=== PATIENT | female | born 1985 | race Caucasian/White ===

== ENCOUNTER 2025-01-10 13:45 | Emergency (ER) | payer BC, SELFPAY ==
--- NOTE | 2025-01-10 13:50 | ED_ITS ---
HPI - Female Genitourinary General Chief complaint: Urogenital-Female Stated complaint: Uti Symptoms Time Seen by Provider: 01/10/25 14:05 Source: patient Mode of arrival: ambulatory Limitations: no limitations History of Present Illness HPI Narrative: Emiyl is a 40-year-old female patient presenting to the clinic today with complaints any tract infection over the last 1-2 days. She reports she is having burning, frequency, and urgency with low urine output. She denies any odor or any abnormal vaginal discharge. Denies any concern for STIs. No fever, chills, body aches, abdominal pain, or back pain. States she does get vaginal yeast infections when taking antibiotics at times. Related Data Allergies Allergy/AdvReac Type Severity Reaction Status Date / Time No Known Allergies Allergy Mild Verified 01/10/25 13:55 Review of Systems Review of Systems: Pertinent positives per HPI. Patient denies any fever, chills, rash, headache, visual changes, dizziness, cough, shortness of breath, chest pain, palpitations, nausea, vomiting, diarrhea, constipation, abdominal pain, or any urinary issues. PMFSH Comments At the time of my signature, I reviewed and agree with the nursing past medical, surgical, social, and family history. There is no relevant family history pertinent to the patient complaint. Exam Narrative: General: Well-developed, well nourished, in no apparent distress. Head: Normocephalic, atraumatic. Cardio: Regular rate and rhythm, s1 and s2 normal, no murmur appreciated. Resp: Clear to auscultation bilaterally, no rhonchi, rales, wheezing or rubs. Abdomen: Soft, pliable, bowel sounds present in all quadrants, non-tender to palpation, no organomegly, no CVAT tenderness. Course Course Emergency Course: Portions of this record may have been created with voice recognition software. Level of Care: Express Care Visit Vital Signs Vital signs: Vital Signs Temperature 36.6 C 01/10/25 13:58 Pulse Rate 100 01/10/25 13:58 Respiratory Rate 16 01/10/25 13:58 Blood Pressure 105/73 01/10/25 13:58 Pulse Oximetry 100 01/10/25 13:58 Temperature 36.6 C 01/10/25 13:58 Pulse Rate 100 01/10/25 13:58 Respiratory Rate 16 01/10/25 13:58 Blood Pressure 105/73 01/10/25 13:58 Pulse Oximetry 100 01/10/25 13:58 Vital signs reviewed MDM - Female Genitourinary MDM Narrative Medical decision making narrative: At the time of visit patient is resting comfortably on the exam table. Patient appears to be nontoxic. Labs: Urinalysis positive for leukocytes, blood, and protein. We will send urine for culture. Plan: I suspect patient has UTI. Prescription for Bactrim, Pyridium, and fluconazole was sent to the pharmacy. Supportive measures were discussed with the patient and they voiced understanding discharge instructions and agrees to treatment plan. Return precautions reviewed Differential Diagnosis Differential diagnosis: Likely urinary tract infection and cystitis Lab Data Labs: Lab Results 01/10/25 Range/Units 14:09 POC Urine Color Yellow POC Urine Clarity Cloudy POC Urine pH 6.5 POC Ur Specif [place] 1.030 POC Urine Protein 2+ (Negative) POC Ur Glucose (UA) Negative (Negative) POC Urine Ketones Negative (Negative) POC Urine Blood 2+ (Negative) POC Urine Nitrite Negative (Negative) POC Urine Bilirubin Negative (Negative) POC Urine Urobilinogen 0.2 POC U Leukocyte Esteras 1+ (Negative) Discharge Plan Discharge Clinical Impression: Urinary tract infection Qualifiers: Urinary tract infection type: acute cystitis Hematuria presence: with hematuria Qualified Code(s): N30.01 - Acute cystitis with hematuria Patient Disposition: Home, Self-Care Condition: Stable Instructions: Antibiotic Form, Urinary Tract Infection in Women (ED) Additional Instructions: Urinalysis positive for bacteria, protein, and blood Take Bactrim as prescribed Take Pyridium as prescribed Take fluconazole as prescribed Increase fluids and stay well hydrated Wipe front to back. May use wet wipes. Avoid tub baths If sexually active- pee before and after intercourse. Wear cotton panties Avoid tight clothing up against the genitals Follow up with your PCP in 1 week if symptoms persist. Patient Language: Latvian Prescriptions: New fluconazole 150 mg tablet 150 mg PO ONCE Qty: 2 0RF Rx Instructions: as a single dose. May repeat in 72 hours if needed. phenazopyridine [Pyridium] 200 mg tablet 200 mg PO TID PRN (Reason: pain) Qty: 6 0RF sulfamethoxazole-trimethoprim [Bactrim DS] 800-160 mg tablet 1 tablet PO Q12H 5 Days Qty: 10 0RF Follow-up/Referrals: PHYSICIAN,[employer] LAMINATOR [Primary Care Provider] - Time of Disposition: 14:25 Quality NIHSS Nursing Documentation ED NIHSS nursing documentation: reviewed/agree
[2025-01-10 13:58] VITALS: BP 105/73; PULSE 100; RESP 16; TEMP 36.6; O2SAT 100
[2025-01-10 14:11] LABS: EDUAAPPEAR Cloudy; EDUABILI Negative (Negative); EDUABLOOD 2+ (Negative); EDUACOLOR1 Yellow; EDUAGLUCOSE Negative (Negative); EDUAKETONE Negative (Negative); EDUALEUKO 1+ (Negative); EDUANITRATE Negative (Negative); EDUAPH 6.5; EDUAPROTEIN 2+ (Negative); EDUAUROBILI 0.2
== END 2025-01-10 14:32 | disposition home or self-care (01) ==
PROVIDERS: Emergency Provider Nurse Practitioner Family
DX: N30.01 Acute cystitis with hematuria (principal)
CPT/HCPCS: 81003; 87086; 99203; G0463

== ENCOUNTER 2025-02-19 13:41 | Emergency (ER) | payer BC, SELFPAY ==
[2025-02-19 13:53] VITALS: BP 110/77; PULSE 89; RESP 16; TEMP 36.6; O2SAT 100
--- NOTE | 2025-02-19 13:56 | ED.FEMALEGU ---
HPI - Female Genitourinary General Chief complaint: Urogenital-Female Stated complaint: UTI SYMPTOMS Time Seen by Provider: 02/19/25 13:57 Source: patient, RN notes reviewed and old records reviewed Mode of arrival: ambulatory Limitations: no limitations History of Present Illness HPI Narrative: 40 year old female presents to express car with complaints of developing urgency and burning with urination since last night. Patient reports that she feel like she has to urinate and then she can't go. Patient reports that she has had several UTI's lately. Patient reports that she just took Amoxicillin in January for UTI. Patient states that she has seen an Urologist in the past. Ptient reports that she has had a uterine ablation and does not have menses.Patient reports no fevers, chills or sweats, denies any back or flank pain. MD elicited complaint: UTI Pertinent past history: recurrent UTIs Onset (ago): day(s) (last night symptoms started) Location of symptoms: urethra Severity: mild Quality of pain: burning Vaginal discharge: none Vaginal bleeding: none Urinary symptoms: Dysuria, Urgency and Frequency Treatment prior to arrival: none Related Data Home Medications ?Medication ?Instructions ?Recorded ?Confirmed ?Last Taken ?Type alprazolam 0.25 mg tablet 0.25 mg PO HS PRN anxiety 02/19/25 02/19/25 Unknown History bupropion HCl 300 mg 24 hr tablet, 300 mg PO DAILY 02/19/25 02/19/25 Unknown History extended release plecanatide 3 mg tablet (Trulance) 3 mg PO DAILY 02/19/25 02/19/25 Unknown History risankizumab-rzaa 150 mg/mL 150 mg subcut .3 months 02/19/25 02/19/25 Unknown History subcutaneous pen injector (Skyrizi) tirzepatide (weight loss) 5 mg/0.5 5 mg subcut WEEKLY 02/19/25 02/19/25 Unknown History mL subcutaneous pen injector (Zepbound) Allergies Allergy/AdvReac Type Severity Reaction Status Date / Time No Known Allergies Allergy Mild Verified 02/19/25 13:47 Review of Systems Review of Systems: CONSTITUTIONAL: Denies fever, chills, or sweats. CARDIOVASCULAR: Denies chest pain, palpitations, or edema. RESPIRATORY: Denies cough or dyspnea. GASTROINTESTINAL: Denies abdominal pain, nausea, vomiting, or diarrhea. GENITOURINARY: Reports dysuria, frequency, urgency. Denies flank pain or hematuria. SKIN: Denies rash or itching. MUSCULOSKELETAL: Denies back pain or myalgia. Denies CVA tenderness NEUROLOGIC: Denies headache All systems reviewed & are unremarkable except as noted in HPI and below PMFSH Past Medical History Medical History (Updated 02/22/25 @ 08:26 by Capri Fortune NP) Psoriasis IBS (irritable bowel syndrome) Anxiety and depression Urinary tract infection Surgical History Surgical History History of endometrial ablation Social History Social History Smoking status: Never smoker Alcohol intake: current Alcohol use details: social Substance use type: does not use Living arrangements: with family Gender identity (if verbalized by the patient): Female Comments At time of signature, agree with nursing past medical, surgical, social and family history. There is no relevant family history pertinent to the presenting complaint Exam Narrative: GENERAL: Well-appearing, well-nourished, and in no acute distress. HEAD: Normocephalic, atraumatic. NECK: Supple. no lymphadenopathy CHEST: Clear to auscultation. No respiratory distress. SAO2 100% on room air HEART: Regular rate and rhythm. No murmur heard. Normal peripheral pulses. ABDOMEN: Soft, nontender, nondistended, normal active bowel sounds. No CVA tenderness, reports burning with urination with urgency and frequency EXTREMITIES: Normal range of motion. No edema. SKIN: Warm, dry, no rash. NEURO: No focal deficits. Alert and oriented x3. Course Course Emergency Course: Patient is aware of diagnosis, understands and agrees to treatment plan.? Anticipatory guidance given.? Patient agrees to follow-up as directed and is aware of reasons to seek care at the emergency department. Portions of this record may have been created with voice recognition software Level of Care: Express Care Visit Vital Signs Vital signs: Vital Signs Temperature 36.6 C 02/19/25 13:53 Pulse Rate 89 02/19/25 13:53 Respiratory Rate 16 02/19/25 13:53 Blood Pressure 110/77 02/19/25 13:53 Pulse Oximetry 100 02/19/25 13:53 Temperature 36.6 C 02/19/25 13:53 Pulse Rate 89 02/19/25 13:53 Respiratory Rate 16 02/19/25 13:53 Blood Pressure 110/77 02/19/25 13:53 Pulse Oximetry 100 02/19/25 13:53 reviewed MDM - Female Genitourinary MDM Narrative Medical decision making narrative: Exam findings and UA show no acute concerns or changes; patient is non-toxic appearing and is in no distress.? Patient is appropriate for outpatient treatment and follow-up. Differential Diagnosis Differential diagnosis: Likely urinary tract infection, cystitis and other (dysuria) Medical Records Attestation: I reviewed the patient's medical records. Lab Data Attestation: I reviewed the patient's lab results. Lab results narrative: see urine dip: 1+ leukocyte, urine specific gravity 1.030 Labs: Lab Results 02/19/25 Range/Units 14:31 POC Urine Color Yellow POC Urine Clarity Clear POC Urine pH 6.5 POC Ur Specif [place] 1.030 POC Urine Protein Negative (Negative) POC Ur Glucose (UA) Negative (Negative) POC Urine Ketones Negative (Negative) POC Urine Blood Negative (Negative) POC Urine Nitrite Negative (Negative) POC Urine Bilirubin Negative (Negative) POC Urine Urobilinogen 0.2 POC U Leukocyte Esteras 1+ (Negative) reviewed Critical Care Time Critical Care Time Critical Care Time: No Discharge Plan Discharge Clinical Impression: Urinary tract infection Qualifiers: Urinary tract infection type: site unspecified Hematuria presence: without hematuria Qualified Code(s): N39.0 - Urinary tract infection, site not specified Patient Disposition: Home Condition: Stable Instructions: Antibiotic Form, Urinary Tract Infection in Women (ED) Additional Instructions: Increase fluids especially cranberry juice and water Avoid caffeine and carbonated beverages Antibiotic as directed Medicine as directed--cautioned it will cause your urine to be bright orange Tylenol/ibuprofen for pain or fever Follow-up with her primary care provider if further problems or concerns Recheck if you have fever over 101, nausea and vomiting. If your symptoms persist, change or worsen significantly before you can contact your personal physician then please, without delay, go to the emergency department for further evaluation. Follow-up with PCP in 7-10 days or sooner if needed Patient Language: Citizen Of [place] Prescriptions: New amoxicillin-pot clavulanate 875-125 mg tablet 1 tablet PO Q12H Qty: 20 0RF Rx Instructions: recommend taking with food and also recommend taking probiotic while on this medication No Action phenazopyridine [Pyridium] 200 mg tablet 200 mg PO TID PRN (Reason: pain) Qty: 6 0RF alprazolam 0.25 mg tablet 0.25 mg PO HS PRN (Reason: anxiety) bupropion HCl 300 mg tablet extended release 24 hr 300 mg PO DAILY Skyrizi 150 mg/mL pen injector 150 mg SUBCUT .3 months Zepbound 5 mg/0.5 mL pen injector 5 mg SUBCUT WEEKLY Trulance 3 mg tablet 3 mg PO DAILY Follow-up/Referrals: Fran,Lucio Zaidi MD [Primary Care Provider] - Time of Disposition: 14:22 Quality [place] Coma Scale Eyes: Open Verbal: Oriented and Alert Motor: Follows Commands [place] Coma Total Score: 15
[2025-02-19 14:34] LABS: EDUAAPPEAR Clear; EDUABILI Negative (Negative); EDUABLOOD Negative (Negative); EDUACOLOR1 Yellow; EDUAGLUCOSE Negative (Negative); EDUAKETONE Negative (Negative); EDUALEUKO 1+ (Negative); EDUANITRATE Negative (Negative); EDUAPH 6.5; EDUAPROTEIN Negative (Negative); EDUAUROBILI 0.2
== END 2025-02-19 14:27 | disposition home or self-care (01) ==
PROVIDERS: Emergency Provider Registered Nurse; PCP Family Medicine
DX: N39.0 Urinary tract infection, site not specified (principal); L40.9 Psoriasis, unspecified; F41.9 Anxiety disorder, unspecified; F32.A Depression, unspecified
CPT/HCPCS: 81003; 87086; 99213; G0463

== ENCOUNTER 2025-04-09 08:04 | Emergency (ER) | payer BC, SELFPAY ==
--- NOTE | 2025-04-09 08:11 | ED.FEMALEGU ---
HPI - Female Genitourinary General Chief complaint: Urogenital-Female Stated complaint: Uti Symptoms Time Seen by Provider: 04/09/25 08:18 Source: patient and RN notes reviewed Mode of arrival: ambulatory Limitations: no limitations History of Present Illness HPI Narrative: 40-year-old female presents with concern for UTI symptoms. She reports urgency, frequency, dysuria for about 2 days. She reports some nausea. Denies vomiting, chills, fever, body aches, back pain, abdominal pain. She reports she has been told she has pelvic floor dysfunction which can cause these symptoms, she sees the urologist. At some point in her life she took Macrobid daily she prevent UTIs, she has not done that for quite some time. Reports in November she had symptoms return and she has been getting frequent UTI symptoms. She was unable to see her urologist. Patient took azo last night. MD elicited complaint: UTI Related Data Home Medications ?Medication ?Instructions ?Recorded ?Confirmed ?Last Taken ?Type alprazolam 0.25 mg tablet 0.25 mg PO HS PRN anxiety 02/19/25 02/19/25 Unknown History bupropion HCl 300 mg 24 hr tablet, 300 mg PO DAILY 02/19/25 02/19/25 Unknown History extended release plecanatide 3 mg tablet (Trulance) 3 mg PO DAILY 02/19/25 02/19/25 Unknown History risankizumab-rzaa 150 mg/mL 150 mg subcut .3 months 02/19/25 02/19/25 Unknown History subcutaneous pen injector (Skyrizi) tirzepatide (weight loss) 5 mg/0.5 5 mg subcut WEEKLY 02/19/25 02/19/25 Unknown History mL subcutaneous pen injector (Zepbound) Allergies Allergy/AdvReac Type Severity Reaction Status Date / Time No Known Allergies Allergy Mild Verified 04/09/25 08:20 Review of Systems Review of Systems: CONSTITUTIONAL: Denies malaise, chills, sweats, or fever. CARDIOVASCULAR: Denies chest pain, palpitations, or edema. RESPIRATORY: Denies cough or dyspnea. GASTROINTESTINAL: Denies abdominal pain, vomiting, diarrhea. Reports nausea GENITOURINARY: Reports dysuria, frequency, urgency. Denies flank pain or hematuria. SKIN: Denies rash or itching. MUSCULOSKELETAL: Denies back pain or myalgia. All systems reviewed & are unremarkable except as noted in HPI and below PMFSH Past Medical History Medical History (Updated 04/09/25 @ 08:29 by Cristal Redman NP) Psoriasis IBS (irritable bowel syndrome) Anxiety and depression Urinary tract infection Surgical History Surgical History History of endometrial ablation Social History Social History Smoking status: Never smoker Alcohol intake: current Alcohol use details: social Substance use type: does not use Living arrangements: with family Gender identity (if verbalized by the patient): Female Comments At time of signature, agree with nursing past medical, surgical, social and family history. There is no relevant family history pertinent to the presenting complaint Exam Narrative: GENERAL: Well-appearing, well-nourished, and in no acute distress. HEAD: Normocephalic. EYES: PERRLA, conjunctivae clear. NECK: Supple. No lymphadenopathy CHEST: Clear to auscultation. No respiratory distress. HEART: Regular rate and rhythm. ABDOMEN: Soft, nontender upon palpation, nondistended, normal active bowel sounds, no palpable or pulsatile masses, no guarding. No CVA tenderness SKIN: Warm, dry, no rash. NEURO: Alert and oriented x3. PSYCH: Normal mood and affect Course Course Emergency Course: Patient is aware of diagnosis, understands and agrees to treatment plan. Anticipatory guidance given. Patient agrees to follow-up as directed and is aware of reasons to seek care at the emergency department. Portions of this record may have been created with voice recognition software Level of Care: Express Care Visit Vital Signs Vital signs: Reviewed. MDM - Female Genitourinary MDM Narrative Medical decision making narrative: Exam findings and UA show no acute concerns or changes; patient is non-toxic appearing and is in no distress. Patient is appropriate for outpatient treatment and follow-up. Differential Diagnosis Differential diagnosis: Likely urinary tract infection and cystitis Critical Care Time Critical Care Time Critical Care Time: No Discharge Plan Discharge Clinical Impression: Dysuria Patient Disposition: Home Condition: Stable Instructions: Antibiotic Form, Dysuria (ED) Additional Instructions: We will send a urine culture to the lab; if the culture identifies an organism that the prescribed antibiotic will not treat, you will receive a phone call from an urgent care staff member and an appropriate antibiotic will be prescribed. -Your symptoms should begin to improve within a day of starting antibiotics. But you should finish all the antibiotic pills you get. Otherwise your infection might come back. -Also recommend: increase water intake. Tylenol/ibuprofen as needed for pain or fever -Follow-up with your primary care provider for urine recheck or seek ER visit if condition worsens with high fever, nausea, vomiting and severe back pain. Patient Language: Setswana Prescriptions: New fluconazole 150 mg tablet 150 mg PO Q48H 3 Days Qty: 2 0RF Rx Instructions: take one dose now, and a second dose if symptoms remain in 48 hours phenazopyridine [Pyridium] 200 mg tablet 200 mg PO TID PRN (Reason: pain) Qty: 6 0RF nitrofurantoin monohyd/m-cryst [Macrobid] 100 mg capsule 100 mg PO Q12H 5 Days Qty: 10 0RF Rx Instructions: must administer with a meal/food Held alprazolam 0.25 mg tablet 0.25 mg PO HS PRN (Reason: anxiety) Hold Instructions: Resume on 04/16/25. Do not take if taking fluconazole, these medications interact No Action phenazopyridine [Pyridium] 200 mg tablet 200 mg PO TID PRN (Reason: pain) Qty: 6 0RF bupropion HCl 300 mg tablet extended release 24 hr 300 mg PO DAILY Skyrizi 150 mg/mL pen injector 150 mg SUBCUT .3 months Zepbound 5 mg/0.5 mL pen injector 5 mg SUBCUT WEEKLY Trulance 3 mg tablet 3 mg PO DAILY amoxicillin-pot clavulanate 875-125 mg tablet 1 tablet PO Q12H Qty: 20 0RF Rx Instructions: recommend taking with food and also recommend taking probiotic while on this medication Follow-up/Referrals: PHYSICIAN,PH[employer] M[employer] PATTERN GENERATOR [Primary Care Provider] - Time of Disposition: 08:30
[2025-04-09 08:12] VITALS: BP 113/83; PULSE 101; RESP 16; TEMP 36.3; O2SAT 100
== END 2025-04-09 08:58 | disposition home or self-care (01) ==
PROVIDERS: Emergency Provider Nurse Practitioner
DX: R30.0 Dysuria (principal); R35.0 Frequency of micturition; R39.15 Urgency of urination
CPT/HCPCS: 87086; 99213; G0463

== ENCOUNTER 2025-08-16 11:35 | Emergency (ER) | payer BC, SELFPAY ==
[2025-08-16 11:49] VITALS: BP 118/82; PULSE 96; RESP 16; TEMP 36.6; O2SAT 100
--- NOTE | 2025-08-16 13:26 | ED.URI ---
HPI - URI/Sore Throat General Chief Complaint: Upper Respiratory Infection Stated Complaint: Sinus Infection Symptoms Time Seen by Provider: 08/16/25 13:09 Source: patient and RN notes reviewed Mode of arrival: ambulatory Limitations: no limitations History of Present Illness HPI Narrative: 40-year-old female patient presents today with a 10 day history of facial pressure, postnasal drip, frontal headache, cough. Currently rates her pain 7/10 and has been taking Sudafed, Tylenol with mild improvement. Denies shortness of breath, difficulty swallowing. No recent antibiotic use. Related Data Home Medications ?Medication ?Instructions ?Recorded ?Confirmed ?Last Taken ?Type alprazolam 0.25 mg tablet 0.25 mg PO HS PRN anxiety 02/19/25 08/16/25 Unknown History bupropion HCl 300 mg 24 hr tablet, 300 mg PO DAILY 02/19/25 08/16/25 Unknown History extended release plecanatide 3 mg tablet (Trulance) 3 mg PO DAILY 02/19/25 08/16/25 Unknown History risankizumab-rzaa 150 mg/mL 150 mg subcut .3 months 02/19/25 08/16/25 Unknown History subcutaneous pen injector (Skyrizi) tirzepatide (weight loss) 5 mg/0.5 5 mg subcut WEEKLY 02/19/25 08/16/25 Unknown History mL subcutaneous pen injector (Zepbound) Allergies Allergy/AdvReac Type Severity Reaction Status Date / Time No Known Allergies Allergy Mild Verified 08/16/25 11:46 [facility] Past Medical History Medical History (Updated 08/16/25 @ 13:28 by Anastacia Alexandra APRN, BASS[facility]) Psoriasis IBS (irritable bowel syndrome) Anxiety and depression Urinary tract infection Surgical History Surgical History History of endometrial ablation Social History Social History Smoking status: Never smoker Alcohol intake: current Alcohol use details: social Substance use type: does not use Living arrangements: with family Gender identity (if verbalized by the patient): Female Comments At time of signature, I have reviewed and agree with nursing past medical, surgical, social and family history unless otherwise noted. Please see nursing chart for further information. There is no relevant family history pertinent to the presenting complaint Exam Narrative: GENERAL: Well-appearing, well-nourished, and in no acute distress. HEAD: Normocephalic, atraumatic. EYES: EOMI. No redness or drainage. Conjunctivae normal. ENT: Mucous membranes pink and moist. Nares congested with rhinorrhea. Mildly tender bilateral frontal and maxillary sinuses.TMs normal bilaterally. Throat mildly erythematous posteriorly without edema or exudate. Uvula midline. NECK: Normal AROM. Supple. No lymphadenopathy. CHEST: No respiratory distress. Clear to auscultation. HEART: Regular rate and rhythm. No murmur appreciated. EXTREMITIES: Normal range of motion. No edema. SKIN: Warm, dry, no rash. Capillary refill normal. Normal skin turgor. NEURO: No focal deficits. Alert and oriented x3. Gait steady. PSYCH: Normal affect. No signs of depression or anxiety. Course Course Level of Care: Express Care Visit Vital Signs Vital signs: Vital Signs Temperature 97.8 F 08/16/25 11:49 Pulse Rate 96 08/16/25 11:49 Respiratory Rate 16 08/16/25 11:49 Blood Pressure 118/82 08/16/25 11:49 Pulse Oximetry 100 08/16/25 11:49 Oxygen Delivery Room Air 08/16/25 11:49 Temperature 97.8 F 08/16/25 11:49 Pulse Rate 96 08/16/25 11:49 Respiratory Rate 16 08/16/25 11:49 Blood Pressure 118/82 08/16/25 11:49 Pulse Oximetry 100 08/16/25 11:49 Oxygen Delivery Room Air 08/16/25 11:49 Reviewed MDM - URI/Sore Throat MDM Narrative Medical decision making narrative: 40-year-old female patient presents today with a 10 day history of facial pressure, postnasal drip, frontal headache, cough. Currently rates her pain 7/10 and has been taking Sudafed, Tylenol with mild improvement. Denies shortness of breath, difficulty swallowing. No recent antibiotic use. Upon exam, patient has some nasal congestion with rhinorrhea, tender sinuses, and a mildly erythematous throat. She has been diagnosed sinusitis and will be prescribed Augmentin. Patient agrees with plan. Vital signs stable. Anticipatory guidance given. Differential Diagnosis Differential diagnosis: Likely upper respiratory infection, sinusitis, bronchitis and pharyngitis Critical Care Time Critical Care Time Critical Care Time: No Discharge Plan Discharge Clinical Impression: Sinusitis Qualifiers: Sinusitis location: unspecified location Chronicity: acute Recurrence: non-recurrent Qualified Code(s): J01.90 - Acute sinusitis, unspecified Patient Disposition: Home Condition: Stable Instructions: Antibiotic Form, Sinusitis (ED) Additional Instructions: Please take the Augmentin as prescribed until gone. You may continue over counter medication as well. Follow-up with your PCP in 3 days if symptoms are not improving. Patient Language: [place] Prescriptions: New amoxicillin-pot clavulanate 875-125 mg tablet 1 tablet PO Q12H 7 Days Qty: 14 0RF No Action alprazolam 0.25 mg tablet 0.25 mg PO HS PRN (Reason: anxiety) bupropion HCl 300 mg tablet extended release 24 hr 300 mg PO DAILY Skyrizi 150 mg/mL pen injector 150 mg SUBCUT .3 months Zepbound 5 mg/0.5 mL pen injector 5 mg SUBCUT WEEKLY Trulance 3 mg tablet 3 mg PO DAILY Follow-up/Referrals: Fran,Lucio Zaidi MD [Primary Care Provider] Time of Disposition: 13:29
== END 2025-08-16 13:37 | disposition home or self-care (01) ==
PROVIDERS: Emergency Provider Nurse Practitioner; PCP Family Medicine
DX: J01.90 Acute sinusitis, unspecified (principal); Z79.899 Other long term (current) drug therapy
CPT/HCPCS: 99213; G0463

== ENCOUNTER 2025-10-02 08:12 | Emergency (ER) | payer BC, SELFPAY ==
--- OUTSIDE RECORDS SUMMARY | 2025-10-02 08:16 | XMS_ITS | Encounter Summary ---
Author Organization [facility] Address [address] [place] [address] Care Team Providers Care Private Duty Rn Name Role Phone Lucio Peters MD Primary Care Provider +1- [phone] Encounter Details Date Type Department Care Team (Late st Contact Info) Description 11/16/2023 MyChart Message Enc [facility] Medical Group Family & Internal Medicine [facility] [address] [place] [address] [place] [address] [place] [address] Zoloft Social History Tobacco Use Types Packs/Day Years Used Date Smoking Tobacco: Never Smokeless Tobacco: Never Alcohol Use Standard Drinks/Week Comments Yes 0 (1 standard drink = 0.6 oz pur e alcohol) social PHQ-2 Answer Date Recorded Patient Health Questionnaire-2 Score 3 08/14/2023 Education Answer Date Recorded What is the highest level of school you have completed or the highest degree you have received? Master's degree (e.g., MA, MS, Cabrera, MEd, SHIP SELF DEFENSE SYSTEM MK1 OPERATOR, [place]) 12/10/2018 Comments No Sex and Gender Information Value Date Recorded Sex Assigned at Female 02/25/2025 2:01 PM CDT Legal Sex Female 8:55 PM CDT Gender Identity Female 12/20/2021 11:36 AM MEDICAL ACCOUNTING CLERK Sexual Orientation Straight 12/20/2021 11 :36 AM MEDICAL ACCOUNTING CLERK Occupation Industry Job Start Date Job End Date Not on file Not on file Not on file Not on file documented as of this encounter Plan of Treatment Not on file documented as of this encounter Visit Diagnoses Not on filedocumented in this encounter Additional Health Concerns Assessment Noted Time PHQ-9 Depression Total Score: 11 023 11:35 AM CDT documented as of this encounter Care Teams Private Duty Rn Relationship Specialty [place] [address] [place] [address] PCP - General FAMILY PRACTICE 12/10/18 documented as of this encounter
--- OUTSIDE RECORDS SUMMARY | 2025-10-02 08:16 | XMS_ITS | Encounter Summary ---
Author Organization [facility] Address [address] [place] [address] Care Team Providers Care Neighborhood Coordinator Name Role Phone Lucio Peters MD Primary Care Provider [phone]- [phone] Encounter Details Date Type Department Care Team (Late st Contact Info) Description 08/14/2023 Intelligent Mobile Supportt Message Enc [facility] Medical Group Family & Internal Medicine [facility] [address] [place] [address] Shanelle Mcclain, SHIP SCALER-BC [address] [place] [address] Medication change Social History Tobacco Use Types Packs/Day Years [...] Master's degree (e.g., MA, MS, Cabrera, MEd, SPEEDER HAND, [place]) 12/10/2018 Comments No Sex and Gender Information Value Date Recorded Sex Assigned at Female 02/25/2025 2:01 PM CDT Legal Sex Female 8:55 PM CDT Gender Identity Female 12/20/2021 11:36 AM CONTINUOUS IMPROVEMENT DIRECTOR Sexual Orientation Straight 12/20/2021 11 :36 AM CONTINUOUS IMPROVEMENT DIRECTOR Occupation Industry Job Start Date Job End Date Not on file Not on file Not on file Not on file documented as of this encounter Functional Status * Over the past 2 weeks, how often have you been bothered by any of the following problems? Question Answer Date of Assessment Author Status Little interest or pleasure in doing things Several days 08/14/2023 11:35 AM Mercedes Denise LPN Active Feeling down, depressed, or hopeless More than half the days 08/14/2023 11:35 AM Mercedes Denise LPN Active Patient Health Questionnaire-2 Score 3 08/14/2023 11:35 AM Mercedes Denise LPN Active * Question Answer Date of Assessment Author Status Trouble falling or staying asleep, or sleeping too much More than half the days 08/14/2023 11:35 AM Mercedes Denise LPN Active Feeling tired or having little energy Several days 08/14/2023 11:35 AM Mercedes Denise LPN Active Poor appetite or overeating More than half the days 08/14/2023 11:35 AM Mercedes Denise LPN Active Feeling bad about yourself - or that you are a failure or have let yourself or your family down More than half the days 08/14/2023 11:35 AM Mercedes Denise LPN Active Trouble concentrating on things, such as reading the newspaper or watching television Several days 08/14/2023 11:35 AM Mercedes Denise LPN Active Moving or speaking so slowly that other people could have noticed? Or the opposite - being so fidgety or restless that you have been moving around a lot more than usual. Not at all 08/14/2023 11:35 AM Mercedes Denise LPN Active Thoughts that you would be better off or hurting yourself in some way Not at all 08/14/2023 11:35 AM Mercedes Denise LPN Active Patient Health Questionnaire-9 Score 11 08/14/2023 11:35 AM Mercedes Denise LPN Active * Calculated C-SSRS Risk Score (Lifetime/Recent) Answer Date of Assessment Author Status No Risk Indicated 08/14/2023 11:37 AM Nate Denise LPN Active * If you checked off any problems on this questionnaire so far, Question Answer Date of Assessment Author Status How difficult have these problems made it for you to do your work, take care of things at home, or get along with other people? Somewhat difficult 08/14/2023 11:35 AM Mercedes Denise LPN Active * Over the last 2 weeks, how often have you been bothered by any of the following problems? Question Answer Date of Assessment Author Status Feeling nervous, anxious, or on edge 2 08/14/2023 11:36 AM Mercedes Denise LPN Ac tive Not being able to stop or control worrying 2 08/14/2023 11:36 AM Mercedes Denise LPN A ctive Worrying too much about different things 2 08/14/2023 11:36 AM Mercedes Denise LPN A ctive Trouble relaxing 2 08/14/2023 11:36 AM Mercedes Denise LPN Active Being so restless that it is hard to sit still 1 08/14/2023 11:36 AM Mercedes Denise L PN Active Becoming easily annoyed or irritable 2 08/14/2023 11:36 AM Mercedes Denise LPN Ac tive Feeling afraid as if something awful might happen 1 08/14/2023 11:36 AM Mercedes Denise LPN Ac tive BATSHEVA-7 Total Score 12 08/14/2023 11:36 AM Mercedes Robb LPN Active * Cameron Suicide Severity Rating Scale (Screener/Recent Self-Report) Question Answer Date of Assessment Author Status 1. Wish to be (Past 1 Month) No 08/14/2023 11:37 AM Mercedes Denise LPN Ac tive 2. Non-Specific Active Suicidal Thoughts (Past 1 Month) No 08/14/2023 11:37 AM CDT Mercedes Davis LPN Ac tive 6. Suicidal Behavior (Lifetime) No 08/14/2023 11:37 AM CDT Mercedes Davis LPN Ac tive documented as of this encounter Progress Notes * Rina Sanz RN - 08/14/2023 1:59 PM CDT Patient would like to try Zoloft, please advise * Rina Sanz RN - 08/14/2023 12:42 PM CDT Please advise documented in this encounter Plan of Treatment Not on file documented as of this encounter Visit Diagnoses Not on filedocumented in this encounter Additional Health Concerns Assessment Noted Time PHQ-9 Depression Total Score: 11 023 11:35 AM CDT documented as of this encounter Care Teams Neighborhood Coordinator Relationship Specialty [place] [address] [place] [address] PCP - General FAMILY PRACTICE 12/10/18 documented as of this encounter
--- OUTSIDE RECORDS SUMMARY | 2025-10-02 08:16 | XMS_ITS | Encounter Summary ---
Author Organization [facility] Address [address] [place] [address] Care Team Providers Care Technical Delivery Manager Name Role Phone Lucio Peters MD Primary Care Provider [phone]- [phone] Encounter Details Date Type Department Care Team (Late st Contact Info) Description 07/28/2024 Ambaturet Message Enc [facility] Medical Group Family & Internal Medicine [facility] [address] [place] [address] [place] [address] [place] [address] Trulance Social History Tobacco Use Types Packs/Day Years Used Date Smoking Tobacco: Never Smokeless Tobacco: Never Alcohol Use Standard Drinks/Week Comments Yes 0 (1 standard drink = 0.6 oz pur e alcohol) social PHQ-2 Answer Date Recorded Patient Health Questionnaire-2 Score 2 07/16/2024 Education Answer Date Recorded What is the highest level of school you have completed or the highest degree you have received? Master's degree (e.g., MA, MS, Cabrera, MEd, TUNNEL ELASTIC OPERATOR LOCKSTITCH, [place]) 12/10/2018 Comments No Sex and Gender Information Value Date Recorded Sex Assigned at Female 02/25/2025 2:01 PM CDT Legal Sex Female 8:55 PM CDT Gender Identity Female 12/20/2021 11:36 AM RESEARCH AFFILIATE Sexual Orientation Straight 12/20/2021 11 :36 AM RESEARCH AFFILIATE Occupation Industry Job Start Date Job End Date Not on file Not on file Not on file Not on file documented as of this encounter Plan of Treatment Not on file documented as of this encounter Visit Diagnoses Not on filedocumented in this encounter Additional Health Concerns Assessment Noted Time PHQ-9 Depression Total Score: 9 07/16/20 24 10:33 AM CDT documented as of this encounter Care Teams Technical Delivery Manager Relationship Specialty [place] [address] [place] [address] PCP - General FAMILY PRACTICE 12/10/18 documented as of this encounter
--- OUTSIDE RECORDS SUMMARY | 2025-10-02 08:16 | XMS_ITS | Clinical Summary ---
Author Organization [facility] Address [address] [place] [address] Care Team Providers Care Annual Greenhouse Manager Name Role Phone Lucio Peters MD Primary Care Provider Allergies Active Allergy Reactions Criticality Noted Date Comments Latex Itching Low 05/04/2016 Tape Rash,Itching,Other (see comment) Low Blister Medications albuterol sulfate HFA (PROAIR HFA) 108 (90 Base) MCG/ACT inhalerIndication s:Wheezing Inhale 2 puffs into the lungs every 6 (six) hours as needed for Wheezing. 18 g 1 1 Active Docusate Sodium 100 MG Tab Take 100 mg by mouth 3 (three) times daily as needed. Active omega-3 acid (FISH OIL) 1000 MG capsuleIndication s:Healthcare maintenance Take 1 capsule (1,000 mg total) by mouth daily. 90 capsule 1 3 Active risankizumab (SKYRIZI) 150 MG/ML prefilled syringe Inject 1 mL (150 mg total) into the skin. Active tirzepatide (ZEPBOUND) 5 MG/0.5ML injectionIndicati ons:Weight Loss Inject 5 mg into the skin once a week. Indications: Weight Loss 2 mL 2 5 Active prednisoLONE acetate (PRED FORTE) 1 % ophthalmic suspension Place 1 drop into both eyes every 4 (four) hours. 5 Active amoxicillin-clavu lanate (AUGMENTIN) 875-125 MG tablet TAKE 1 TABLET BY MOUTH EVERY 12 HOURS WITH FOOD AND POSSIBLE PROBIOTIC 5 Active levocetirizine (XYZAL) 5 MG tabletIndications :Seasonal allergies TAKE 1 TABLET DAILY 90 tablet 3 5 Active buPROPion XL (WELLBUTRIN XL) 300 MG 24 hr tabletIndications :Anxiety TAKE 1 TABLET DAILY 90 tablet 3 5 Active TRULANCE 3 MG TabIndications:Ir ritable bowel syndrome with constipation TAKE 1 TABLET BY MOUTH DAILY 90 tablet 1 5 Active ALPRAZolam (XANAX) 0.25 MG tabletIndications :Anxiety Take 1 tablet in am and 2 tablets at bedtime as needed for anxiety. 60 tablet 5 Active butalbital-acetam inophen-caffeine (FIORICET) 50-300-40 MG capsuleIndication s:Migraine Take 1 capsule by mouth every 4 (four) hours as needed for Migraine. 12 capsule 5 Active Magnesium Bisglycinate (MAG GLYCINATE) 100 MG Tab Take 500 mg by mouth daily. Active Magnesium Citrate 100 MG Tab Take 266 mg by mouth daily. Active phenazopyridine (PYRIDIUM) 200 MG tablet Take 1 tablet (200 mg total) by mouth as needed. 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 Constipation, unspecified constipation type 10/2020 Overview (07/14/2021): Added automatically from request for surgery [id number] Nausea 05/09/2018 Normocytic anemia 05/09/2018 Tachycardia 06/21/2017 Anxiety 05/04/2016 IBS (irritable bowel syndrome) 05/04/2016 Chronic interstitial cystitis 08/28/2012 Resolved Problems Problem Noted Date Diagnosed Date Resolved Date Wears glasses 05/08/2018 06/24/2020 Encounters Date Type Department Care Team Description 08/25/2025 9:20 AM GLOBAL HEAD ADVERTISER SOLUTIONS Office Visit [facility] Medical Group Family & Internal Medicine [address] [address] Lucio Peters MD Medication Management (Check up for future refills) 08/25/2025 Travel 08/20/2025 MyChart Message Enc [facility] Medical Group Family & Internal Medicine [facility] [address] [place] [address] Lucio Peters MD [facility] 08/16/2025 Scan HEALTH INFO SRVCS Scanned, Doc Med Group from Last 3 Months Immunizations Immunization Administration Dates Next Due Fluarix (IIV4) 07/06/2020 Fluzone (IIV3, Trivalent, 0. 5 ML Prefilled Syringe) 08/25/2025 Fluzone 6 Months+ Quad (0.5 mL Prefilled Syringe) 08/14/2023,07/03/2021 Influenza (Generic) 07/15/2019, 8,07/15/2017,2015,07/27/2014,07/21/2013,08/13/2012 Influenza 3 yrs + Preservati ve Free (Fluzone) 07/25/2015 Influenza Adult (Generic) 07/14/2024,,07/15/2019,2015 Family History Medical History Relation Comments Hyperlipidemia Father Hypertension Father Cancer Maternal Aunt 1 breast Cancer Maternal Aunt 2 Young Depression Maternal Grandfather Cancer Maternal Grandmother breast Depression Mother Cancer Other Relation Status Comments Father Alive Maternal Aunt 1 Maternal Aunt 2 Alive Maternal Grandfather Alive Maternal Grandmother Alive Mother Alive Other Alive Social History Tobacco Use Types Packs/Day Years Used Date Smoking Tobacco: Never Smokeless Tobacco: Never Tobacco Cessation:Counseling Given: No Alcohol Use Standard Drinks/Week Comments Yes 0 (1 standard drink = 0.6 oz pur e alcohol) social PHQ-2 Answer Date Recorded Patient Health Questionnaire-2 Score 0 10/15/2024 Education Answer Date Recorded What is the highest level of school you have completed or the highest degree you have received? Master's degree (e.g., MA, MS, Cabrera, MEd, PLANT ANATOMIST, [place]) 12/10/2018 Comments No Sex and Gender Information Value Date Recorded Sex Assigned at Female 02/25/2025 2:01 PM CDT Legal Sex Female 8:55 PM CDT Gender Identity Female 12/20/2021 11:36 AM GLOBAL HEAD ADVERTISER SOLUTIONS Sexual Orientation Straight 12/20/2021 11 :36 AM GLOBAL HEAD ADVERTISER SOLUTIONS Occupation Industry Job Start Date Job End Date Not on file Not on file Not on file Not on file Last Filed Vital Signs Vital Sign Reading Time Taken Comments Blood Pressure 114/78 08/25/2025 9:28 AM GLOBAL HEAD ADVERTISER SOLUTIONS Pulse 102 08/25/2025 9:28 AM GLOBAL HEAD ADVERTISER SOLUTIONS Temperature 36.7 C (98 F) 08/25/2025 9:28 AM GLOBAL HEAD ADVERTISER SOLUTIONS Respiratory Rate 16 08/25/2025 9:28 AM GLOBAL HEAD ADVERTISER SOLUTIONS Oxygen Saturation 100% 08/25/2025 9:28 AM GLOBAL HEAD ADVERTISER SOLUTIONS Inhaled Oxygen Concentration - - Weight 53.1 kg (117 lb) 08/25/2025 9:28 AM GLOBAL HEAD ADVERTISER SOLUTIONS Height 152.4 cm (5') 08/25/2025 9:28 AM GLOBAL HEAD ADVERTISER SOLUTIONS Body Mass Index 22.85 08/25/2025 9:28 AM GLOBAL HEAD ADVERTISER SOLUTIONS Plan of Treatment Health Maintenance Due Date Last Done Comments Cervical Cancer Screening Pap Smear (Age 30 to 64) Every 3 Years 1986 DTaP, Tdap and Td Vaccines (1 - Tdap) 2005 Hepatitis B Vaccines (1 of 3 - 19+ 3-dose series) 2005 HPV Vaccines (1 - 3-dose SCDM series) 2013 Cervical Cancer Screening Pap with HPV Testing (Age 30 to 64) Every 5 Years 01/09/2016 Cervical Cancer Screening with HPV 01/09/2016 Annual Physical 12/21/2022 12/21/2021, 09/09/2019 COVID-19 Vaccine ( season) 2025 Hepatitis C Completed 01/24/2024 PHQ-2 (Physician [place]) Completed 10/15/2024 Influenza Adult Completed 08/25/2025, 10/0 10/2023, 08/14/2023, Additional history exists Hepatitis A Vaccines Aged Out No long er eligible based on patient's age to complete this topic Meningococcal B Vaccine Aged Out No l onger eligible based on patient's age to complete this topic Meningococcal Vaccine Aged Out No marina devonte eligible based on patient's age to complete this topic Pneumococcal Vaccine: Pediatrics (0 to 5 Years) and At-Risk Patients (6 to 49 Years) Aged Out No longer eligible based on patient's age to complete this topic RSV Immunizations Under 20 Months Aged Out No longer eligible based on patient's age to complete this topic Procedures Procedure Name Priority Date/Time Associated Diagnosis Comments HEPATITIS C ANTIBODY Routine 01/24/2024 7:50 AM CDT Encounter for long-term (current) drug use from Last 3 Months or Most Recently Relevant to Health Maintenance Results * HEPATITIS C ANTIBODY (01/24/2024 7:50 AM CDT) HEPATITIS C AB NON-REACTI VE NON-REACTI VE 01/24/2024 3:28 PM CDT [facility] 01/24/2024 7:50 AM CDT [facility] Final Resu lt [facility] [address] [place] [address], from Last 3 Months or Most Recently Relevant to Health Maintenance Insurance [id number] Advance Directives * Full Code (Latest Code Status on File) Date Activated Date Inactivated Comments 11/07/2023 8:32 AM 11/08/2023 9:24 AM Care Teams Annual Greenhouse Manager Relationship Specialty [place] [address] [facility] [place] [address] PCP - General FAMILY PRACTICE 12/10/18
--- OUTSIDE RECORDS SUMMARY | 2025-10-02 08:16 | XMS_ITS | Encounter Summary ---
Author Organization [facility] Address [facility] [place] [address] Care Team Providers Care Contact Acid Plant Operator Name Role Phone Lucio Peters MD Primary Care Provider +1- [phone] Encounter Details Date Type Department Care Team (Late st Contact Info) Description 08/15/2021 Prep for Procedure [facility] Day [facility] [address] [place], [place] [id number] Darius Pritchard MD [address] [place] [id number] Social History Tobacco Use Types Packs/Day Years Used Date Smoking Tobacco: Never Smokeless Tobacco: Never Alcohol Use Standard Drinks/Week Comments Yes 0 (1 standard drink = 0.6 oz pur e alcohol) social PHQ-2 Answer Date Recorded PHQ-2 Score - If the patient scores above 3, please move on to questions 3-9 0 11/02/2020 Education Answer Date Recorded What is the highest level of school you have completed or the highest degree you have received? Master's degree (e.g., MA, MS, Cabrera, MEd, LEAD INFORMATICA DEVELOPER, [place]) 12/10/2018 Comments No Sex and Gender Information Value Date Recorded Sex Assigned at Female 02/25/2025 2:01 PM CDT Legal Sex Female 8:55 PM CDT Gender Identity Female 12/20/2021 11:36 AM PAINTING CONTRACTOR Sexual Orientation Straight 12/20/2021 11 :36 AM PAINTING CONTRACTOR Occupation Industry Job Start Date Job End Date Not on file Not on file Not on file Not on file documented as of this encounter Plan of Treatment Not on file documented as of this encounter Results * PRE-SURGICAL/PRE-PROCEDURE CORONAVIRUS (COVID 19) (08/20/2021 8:09 AM PAINTING CONTRACTOR) SPECIMEN SOURCE NASAL 8:07 AM [facility] CORONAVIRUS SARS COV 2 PCR (RESP) NEGATIVE NEGATIVE 08/21/2021 11:09 AM [facility] Comment: THE SARS-CoV-2 TEST HAS BEEN AUTHORIZED BY THE FDA UNDER AN EUA FOR USE BY AUTHORIZED LABORATORIES. PERFORMED BY NUCLEIC ACID AMPLIFICATION PCR FIRST TEST UNKNOWN 08/20/2021 8:07 AM [facility] EMPLOYED IN HEALTHCARE NO 08/20/2021 8:07 AM [facility] SYMPTOMATIC DEFINED BY CDC NO 08/20/2021 8:07 AM PAINTING CONTRACTOR [facility] HOSPITALIZATION STATUS NO 08/20/2021 8:07 AM [facility] PATIENT IN ICU NO 08/20/2021 8:07 AM PAINTING CONTRACTOR [facility] RESIDENT OF [facility] C[facility] NO 08/20/2021 8:07 AM [facility] UNKNOWN 08/20/2021 8:07 AM [facility] NASAL STRUCTURE / Unknown 08/20/2021 8:09 AM PAINTING CONTRACTOR Darius Pritchard MD MICROBIOLOGY - GENERAL ORDERABLE S Final Result [facility] [address] [place] [address], [place] [phone] [facility] [address] [place] [address], [place] [phone] documented in this encounter Visit Diagnoses Diagnosis Preop testing- Primary Preoperative examination, unspecified documented in this encounter Additional Health Concerns Infection Onset Date Last Indicated Resolved Time COVID-19 Rule Out 08/20/2021 08/20/2021 08/21/2021 11:09 AM PAINTING CONTRACTOR documented as of this encounter Care Teams Contact Acid Plant Operator Relationship Specialty [place] [address] [place] [address] PCP - General FAMILY PRACTICE 12/10/18 documented as of this encounter
--- OUTSIDE RECORDS SUMMARY | 2025-10-02 08:16 | XMS_ITS | Encounter Summary ---
Author Organization [facility] Address [facility] [place] [address] Care Team Providers Care Rn Wound Name Role Phone Lucio Peters MD Primary Care Provider +1 [phone] Encounter Details Date Type Department Care Team (Late st Contact Info) Description 12/02/2023 Treatspace Message Enc [facility] Medical Group Multispecialty Care - [facility] [address] [facility], [address] [place] [phone] [employer], [facility] Provider medication refill Social History Tobacco Use Types Packs/Day Years [...] Master's degree (e.g., MA, MS, Cabrera, MEd, WEATHERIZATION CREW LEADER, [place]) 12/10/2018 Comments No Sex and Gender Information Value Date Recorded Sex Assigned at Female 02/25/2025 2:01 PM CDT Legal Sex Female 8:55 PM CDT Gender Identity Female 12/20/2021 11:36 AM REMEDIAL TEACHER Sexual Orientation Straight 12/20/2021 11 :36 AM REMEDIAL TEACHER Occupation Industry Job Start Date Job End [...] documented as of this encounter Care Teams Rn Wound Relationship Specialty [place] [address] [place] [address] PCP - General FAMILY PRACTICE 12/10/18 documented as of this encounter
--- OUTSIDE RECORDS SUMMARY | 2025-10-02 08:16 | XMS_ITS | Encounter Summary ---
Author Organization [facility] Address [address] [place] [address] Care Team Providers Care Field Crop Ii Farmworker Name Role Phone Lucio Peters MD Primary Care Provider [phone]- [phone] Encounter Details Date Type Department Care Team (Late st Contact Info) Description 06/12/2022 MyCPretio Interactivet Message Enc [facility] Medical Group Family & Internal Medicine [facility] [address] [place] [address] [place] [address] [place] [address] [employer]al Social History Tobacco Use Types Packs/Day Years Used Date Smoking Tobacco: Never Smokeless Tobacco: Never Alcohol Use Standard Drinks/Week Comments Yes 0 (1 standard drink = 0.6 oz pur e alcohol) social PHQ-2 Answer Date Recorded PHQ-2 Score - If the patient scores above 3, please move on to questions 3-9 0 12/21/2021 Education Answer Date Recorded What is the highest level of school you have completed or the highest degree you have received? Master's degree (e.g., MA, MS, Cabrera, MEd, MEDICAL STAFF ASSISTANT, [place]) 12/10/2018 Comments No Sex and Gender Information Value Date Recorded Sex Assigned at Female 02/25/2025 2:01 PM CDT Legal Sex Female 8:55 PM CDT Gender Identity Female 12/20/2021 11:36 AM RIDING TEACHER Sexual Orientation Straight 12/20/2021 11 :36 AM RIDING TEACHER Occupation Industry Job Start Date Job End Date Not on file Not on file Not on file Not on file COVID-19 Exposure Response Date Recorded In the last 10 days, have yo u been in contact with someone who was confirmed or suspected to have Coronavirus/COVID-19? No / Unsure 06/07/2022 8:13 AM CDT documented as of this encounter Plan of Treatment Not on file documented as of this encounter Visit Diagnoses Not on filedocumented in this encounter Additional Health Concerns Assessment Noted Time PHQ-9 Depression Total Score: 0 12/22/19 22 10:49 AM RIDING TEACHER documented as of this encounter Care Teams Field Crop Ii Farmworker Relationship Specialty [place] [address] [place] [address] PCP - General FAMILY PRACTICE 12/10/18 documented as of this encounter
--- OUTSIDE RECORDS SUMMARY | 2025-10-02 08:16 | XMS_ITS | Clinical Summary ---
Author Organization [facility] Address [address] [place] [address] Care Team Providers Care Museum Director Name Role Phone Unavailable Primary Care Provider Unavailabl e Source Comments [facility],non-owned Affiliates and Associated Physician Practices is amultiple site organization consisting of ambulatory clinics and hospital sitesin [place], [place], [place] and [place]. This disclosure is being madepursuant to the Care Everywhere program and may not contain all information available regarding this patient. Last updated 18.[facility] Allergies Active Allergy Reactions Criticality Noted Date Comments Adhesive Sensitivity Other Low 07/05/2021 Reaction: Other Latex Itching Low 05/04/2016 Medications * Be aware that medications may not be up to date on this document. Alwaysverify current medications with the patient. ALPRAZolam (XANAX) 0.25 MG tablet Take 1 tablet by mouth as needed 1 Active buPROPion XL 24hr (WELLBUTRIN-XL) 300 MG tablet Take 300 mg by mouth once daily 1 Active LINZESS 290 MCG capsule Take 1 capsule by mouth once daily 1 Active terbinafine (LAMISIL) 250 MG tablet Take 1 tablet by mouth once daily 1 Active phenazopyridine (PYRIDIUM) 200 MG tablet Take 200 mg by mouth 3 times daily as needed 1 Active betamethasone dipropionate augmented (DIPROLENE) 0.05 % ointment Apply 1 drop to affected area 2 times daily Active docusate sodium (STOOL SOFTENER) 100 MG tablet Take 100 mg by mouth 3 times daily as needed for Constipation Active Multiple Vitamins-Mineral s (HAIR SKIN AND NAILS FORMULA PO) Take 3 capsules by mouth 3 times daily as needed Active loratadine (CLARITIN) 10 MG tablet Take 10 mg by mouth once daily Active OMEGA 3-6-9 FATTY ACIDS PO Take 1 tablet by mouth once daily Active Active Problems Problem Noted Date Diagnosed Date Anxiety 05/04/2016 IBS (irritable bowel syndrome) 05/04/2016 Chronic interstitial cystitis 08/28/2012 Family History Medical History Relation Name Comments Hyperlipidemia Father Hypertension Father Cancer - Breast Maternal Aunt Depression Maternal Grandfather Hyperlipidemia Maternal Grandfather Hypertension Maternal Grandfather Hyperlipidemia Maternal Grandmother Hypertension Maternal Grandmother Cancer - Breast Maternal Great-Grandmother Depression Mother Hyperlipidemia Paternal Grandfather Hypertension Paternal Grandfather Hyperlipidemia Paternal Grandmother Hypertension Paternal Grandmother Relation Name Status Comments Father Maternal Aunt Maternal Grandfather Maternal Grandmother Maternal Great-Grandmother Mother Paternal Grandfather Paternal Grandmother Social History Tobacco Use Types Packs/Day Years Used Date Smoking Tobacco: Never Smokeless Tobacco: Never Alcohol Use Standard Drinks/Week Comments Not Currently 0 (1 standard drink = 0.6 oz pur e alcohol) Socially Comments No Sex and Gender Information Value Date Recorded Sex Assigned at Not on file Legal Sex Female 9:30 AM CDT Gender Identity Not on file Sexual Orientation Not on file Last Filed Vital Signs Vital Sign Reading Time Taken Comments Blood Pressure 110/60 09/06/2021 11:07 AM POUND ATTENDANT Pulse - - Temperature - - Respiratory Rate - - Oxygen Saturation - - Inhaled Oxygen Concentration - - Weight 64.5 kg (142 lb 3.2 oz) 09/06/2021 11:07 AM POUND ATTENDANT Height 154.9 cm (5' 1) 09/06/2021 11:07 AM POUND ATTENDANT Body Mass Index 26.87 09/06/2021 11:07 AM POUND ATTENDANT Plan of Treatment Health Maintenance Due Date Last Done Comments HIV SCREENING 2001 HEPATITIS C SCREENING 01/04/2004 DTAP/TDAP/TD VACCINES (1 - Tdap) 2005 HEPATITIS B VACCINE (1 of 3 - 19+ 3-dose series) 2005 HPV VACCINE (1 - 3-dose SCDM series) 2013 DEPRESSION SCREENING 10/14/2024 COVID-19 VACCINE (2024- season) 2025 INFLUENZA VACCINE (#1) 2025 , 07/06/2020, 07/15/2019, Additional history exists ZOSTER VACCINE (1 of 2) 01/09/2036 HIB VACCINE Aged Out No longer eligi ble based on patient's age to complete this topic MENINGOCOCCAL (Group B) VACCINE SHARED DECISION-MAKING Aged Out No longer eligible based on patient's age to complete this topic MENINGOCOCCAL GROUPS A/C/Y/W VACCINE Aged Out No longer eligible based on patient's age to complete this topic PNEUMOCOCCAL VACCINE Aged Out No long er eligible based on patient's age to complete this topic Insurance
--- OUTSIDE RECORDS SUMMARY | 2025-10-02 08:16 | XMS_ITS | Encounter Summary ---
Author Organization [facility] Address [address] [place] [id number] Care Team Providers Care Extension Associate Name Role Phone Lucio Peters MD Primary Care Provider [phone] Encounter Details Date Type Department Care Team (Late st Contact Info) Description 07/17/2024 ConnectAndSellt Message Enc [facility] Family & Internal Medicine [facility] [address] [place] [address] [place] [address] [place] [address] Follow up from yesterdays visit Social History Tobacco Use Types Packs/Day Years [...] Master's degree (e.g., MA, MS, Cabrera, MEd, SENIOR GRAPHIC DESIGNER, [place]) 12/10/2018 Comments No Sex and Gender Information Value Date Recorded Sex Assigned at Female 02/25/2025 2:01 PM CDT Legal Sex Female 8:55 PM CDT Gender Identity Female 12/20/2021 11:36 AM [employer] SUPPORT [employer] ENGINEERS Sexual Orientation Straight 12/20/2021 11 :36 AM [employer] Occupation Industry Job Start Date Job End [...] documented as of this encounter Care Teams Extension Associate Relationship Specialty [place] [address] [place] [address] PCP - General FAMILY PRACTICE 12/10/18 documented as of this encounter
--- OUTSIDE RECORDS SUMMARY | 2025-10-02 08:16 | XMS_ITS | Data Portability ---
Author Organization [facility], [id number] Address [address] [place] [address] Assessment No assessment recorded. Plan of Treatment Reminders Order Date Submit Date Provider Last Modified By Organization Details Last Modified Time Details Appointments ANNUAL- EST 15 2025 10:00A M LOUISA LOREDO WHNP Not available Not available Not available Lab urinaly sis, dipstic k 2024 025 april [id number] Mahamed Mejia, [address], [place], [address], 03/03/2025 11:04:56 culture , urine + sensiti vity 2024 025 [email or web address] [facility] ([facility]), [address], [place] [address], [place], [address], 03/10/2025 12:33:54 urinaly sis, microsc opic - UA with microsc opic refl ex to urine c&s 2024 025 ATHENAFAX [facility] (Lab), [address] [place], [address], 03/03/2025 11:10:45 wet mount panel, vaginal fluid 2024 025 april [id number] Mahamed Mejia, [address], [place], [address], 03/03/2025 11:07:46 jose a wet prep 2024 025 [email or web address] [id number], [address] , [place], [address], 03/03/2025 11:07:[address] referra l - eval for interst itial cystiti s 2024 025 [email or web address] Not available 03/04/2025 08:21:05 Procedures None recorde d. Surgeries None recorde d. Imaging None recorde d. Medication Orders phenazo pyridin e 200 mg tablet 2024 025 [id number], [address] [place], [phone], 03/03/2025 11:05:02 flucona zole 150 mg tablet 2024 025 [id number], [address], [place], [phone], 03/03/2025 11:05:01 Patient TargetsNo targets recorded. Patient InstructionsNo instructions recorded. Reason for Referral Urologist Referral for Dysur ia eval for interstitial cystitis Referring Physician: Louisa Loredo, STRAIGHT LINE EDGER, Encounter Date: 03/03/2025 Results Created Date Observation Date Name Description Value Unit Range Abnormal Flag Note LastModifiedBy Organization Detail LastModifiedTime 03/03/2003/05/2025 CULTU RE, URINE specimen source Urine - CC Not Available [facility] ([facility]) [address], [place], [address], 03/05/2025 09:03:51 03/03/20 25 03/05/2025 CULTU RE, URINE culture, urine See Below Final Repor t : No Signi fican t Growt h Not Available [facility] ([facility]) [address], [place], [address], 03/05/2025 09:03:51 03/03/20 25 03/03/2025 wet mount panel , vagin al fluid Unknown Analyte <20% Not Available [facility] [address] [place], [address], 03/03/2025 11:06:07 03/03/20 25 03/03/2025 wet mount panel , vagin al fluid Unknown Analyte negati ve Not Available [id number] [place], [place] [address]crest [address], [place], [address], 03/03/2025 11:06:07 03/03/20 25 03/03/2025 wet mount panel , vagin al fluid Unknown Analyte Negati ve Not Available [id number] [address], [place], [address], 03/03/2025 11:06:07 03/03/20 25 03/03/2025 wet mount panel , vagin al fluid Unknown Analyte Presen t Not Available [id number] [place], [address], 03/03/2025 11:06:07 03/03/20 25 03/03/2025 wet mount panel , vagin al fluid Unknown Analyte Presen t Not Available [id number] [place], [address], 03/03/2025 11:06:07 03/03/20 25 03/03/2025 wet mount panel , vagin al fluid Unknown Analyte 1+/2+ Not Available [address] [place] [address] [address], [place], [address], 03/03/2025 11:06:07 03/03/20 25 03/03/2025 wet mount panel , vagin al fluid Unknown Analyte Absent Not Available [address] [place], [place] [address] , [place], [address], 03/03/2025 11:06:07 03/03/20 25 03/03/2025 wet mount panel , vagin al fluid Unknown Analyte Negati ve Not Available [address] [place], [address], 03/03/2025 11:06:07 03/03/20 25 03/03/2025 wet mount panel , vagin al fluid Unknown Analyte Negati ve Not Available [address] [place], [address], 03/03/2025 11:06:07 03/03/20 25 03/03/2025 jose a wet prep Hyphae Presen t Not Available [address] [place], [address], 03/03/2025 11:06:10 03/03/20 25 03/03/2025 urina lysis , dipst ick glucose negati ve neg - 2+ Not Available [address] [place], [address], 03/03/2025 10:02:50 03/03/20 25 03/03/2025 urina lysis , dipst ick bilirubin neg neg - pos Not Available [id number] [place], [place] [address] [place], [address], 03/03/2025 10:02:50 03/03/20 25 03/03/2025 urina lysis , dipst ick ketones +1 neg - lar Not Available [id number] [place], [address], 03/03/2025 10:02:50 03/03/20 25 03/03/2025 urina lysis , dipst ick specific gravity 1.015 1.005- 1.030 Not Available [address] [place], [address], 03/03/2025 10:02:50 03/03/20 25 03/03/2025 urina lysis , dipst ick blood neg neg - lar Not Available [address] [place], [address], 03/03/2025 10:02:50 03/03/20 25 03/03/2025 urina lysis , dipst ick pH 5.0 5.0-7. 0 Not Available [address] [place], [address], 03/03/2025 10:02:50 03/03/20 25 03/03/2025 urina lysis , dipst ick protein +3 neg - 4+ Not Available [address] [place], [address], 03/03/2025 10:02:50 03/03/20 25 03/03/2025 urina lysis , dipst ick urobilinogen nerg 0.2 - 8 Not Available [address] [place], [address], 03/03/2025 10:02:50 03/03/20 25 03/03/2025 urina lysis , dipst ick nitrite neg neg - pos Not Available [address], [place], [address], 03/03/2025 10:02:50 03/03/20 25 03/03/2025 urina lysis , dipst ick leukocytes +2 neg - 3+ Not Available [id number] [address], [place], [address], 03/03/2025 10:02:50 Result Notes None recorded. Problems Name Problem SNOMED Code Status Onset Date Resolution Date Notes Provider Name and Address Organization Details Recorded Time Anxiety state 509877198 Active Anxiety Disorder, Generaliz ed, - [employer] 0 Problem Code: 300.00; Problem Code Type: ICD-9; Not Available [facility] 5 13:09:40 Chronic depressive personalit y disorder 090819505 Active Depressio n, Problem Code: 301.12; Problem Code Type: ICD-9; Startdate : 'in the past'; Not Available [facility] 5 13:09:41 Anxiety 30890315 Active 2024 Anastacia Bush null, [place] - [facility] 5 09:38:03 Depressive disorder 13868278 Active 2024 Anastacia Bush [place] [facility] 5 09:38:11 Irritable bowel syndrome 60138723 Active 2024 Anastacia Bush [place] [facility] 5 09:38:18 Psoriasis 4229931 Active 2024 Anastacia Bush [place] [facility] 5 11:37:07 Dysuria 94168901 Active 2024 LOUISA CRUZ [address], [place], [address] , [place] [facility] 5 10:36:00 Candidal vulvovagin itis 28229481 Active 2024 LOUISA CRUZ [address], [place], [address] , [place] [facility] 10:36:21 Problem Notes None recorded. Procedures Surgical History Date Name Laterality Status Provider Name and Address Organization Details Recorded Time 10/02/20 endometrial biopsy completed Anastacia Bush [place] [facility] 12/02/2024 11:11:57 11/07/19 23 Endometrial Ablation completed Anastacia Bush [place] [facility] 12/02/2024 11:05:54 10/25/19 23 Date of Last Pap Smear completed Anastacia Bush [place] [facility] 12/02/2024 09:42:49 10/14/19 23 Date of Last Mammogram completed [place]astacia Bush [place] [facility] 12/02/2024 11:38:01 10/14/19 21 Date of Last Colonoscopy completed Anastacia Bush [place] [facility] 12/02/2024 10:37:46 10/14/19 05 extraction of wisdom tooth completed [place]astacia [place] [facility] 12/02/2024 11:12:25 Colonoscopy completed Anastacia Bush [place] [facility] 12/02/2024 11:34:34 endometrial ablation completed Not Available [facility] 02/11/2025 16:15:31 endometrial biopsy completed Not Available [facility] 02/11/2025 16:15:31 extraction of wisdom tooth completed Not Available [facility] 02/11/2025 16:15:31 colonoscopy completed Not Available [facility] 02/11/2025 16:15:31 Imaging Results None recorded. Procedure Notes None recorded. Medical Equipment None Reported. Allergies Allergen ID Allergen Name Allergen Category Reaction Reaction Severity Criticality Documentation Date Start Date Code Code System Note Provider Name and Address Organization Details Recorded Time 851004 adhesive tape environme nt,medica tion rash Not available Not available 12/01/2024 blist ers Anastacia Bush null, [place] - [facility] 09:37:47 145505 latex environme nt,medica tion rash Not available Not available 12/02/2024 78179 91 RxNorm Anastacia Bush [facility] 5 09:37:26 938494 diphenhyd ramine hydrochlo ride medicatio n Not available Not available Not available 02/11/2025 1362 RxNorm NOTE: Medic al tape - Phree prudencio 10/11 Not Available [facility] 5 13:27:18 Medications Name Sig Start Date Stop Date Status Note LastModified by Organization Details LastModified Time fluconazole 150 mg tablet Take 1 tab tomorrow. May take 2nd dose 3 days after if needed. active Not Available Not Available No t Available phenazopyri dine 200 mg tablet TAKE 1 TABLET BY MOUTH THREE TIMES DAILY FOR 2 DAYS NEEDED active Not Available Not Available No t Available metronidazo le 500 mg tablet 12/02 completed Not Available Not Available Not Available sulfamethox azole 800 mg-trimetho prim 160 mg tablet TAKE 1 TABLET BY MOUTH EVERY 12 HOURS FOR 5 DAYS 03/03 completed Not Available Not Available Not Available alprazolam 0.25 mg tablet TAKE 1 TABLET BY MOUTH IN THE MORNING AND 2 TABLETS AT BEDTIME NEEDED FOR ANXIETY active Not Available Not Available No t Available prednisolon e acetate 1 % eye drops,suspe nsion INSTILL 1 DROP IN BOTH EYES EVERY 2 HOURS FOR 2 DAYS THEN EVERY 3 HOURS FOR 12 DAYS 03/03 completed Not Available Not Available Not Available phenazopyri dine 100 mg tablet TAKE 1 TABLET BY MOUTH THREE TIMES DAILY NEEDED FOR PAIN 03/03 completed Not Available Not Available Not Available sertraline 50 mg tablet 12/02 completed Not Available Not Available Not Available amoxicillin 875 mg-potassiu m clavulanate 125 mg tablet TAKE 1 TABLET BY MOUTH EVERY 12 HOURS WITH FOOD AND POSSIBLE PROBIOTIC 03/03 completed Not Available Not Available Not Available bupropion HCl XL 300 mg 24 hr tablet, extended release active Not Available Not Available Not Available nitrofurant oin monohydrate /macrocryst als 100 mg capsule 12/02 completed Not Available Not Available Not Available levocetiriz ine 5 mg tablet active Not Available Not Available Not Available Trulance 3 mg tablet TAKE 1 TABLET BY MOUTH DAILY active Not Available Not Available No t Available Skyrizi 150 mg/mL subcutaneou s syringe Inject 1 mL every 3 months by subcutane ous route. 03/03 completed Not Available Not Available Not Available Zepbound 5 mg/0.5 mL subcutaneou s pen injector Inject by subcutane ous route for 28 days. active Not Available Not Available No t Available Zepbound 2.5 mg/0.5 mL subcutaneou s pen injector INJECT 1 SYRINGE SUBCUTANE OUSLY ONCE A WEEK FOR 4 WEEKS, THEN MESSAGE OFFICE TO GET NEXT INCREASED DOSE SENT TO THE PHARMACY 12/02 completed Not Available Not Available Not Available Vitals Date Recorded Body height Body mass index (BMI) Body weight Systolic And Diastolic Provider Name and Address Organization Details Last Updated DateTime 12/02/2024 153.67 cm 24.4 kg/m2 09774.23 g 112/60 mm[Hg] Anastacia Bush [facility] 12/02/2024 11:33:02 Date Recorded Body height Body mass index (BMI) Body weight Systolic And Diastolic Provider Name and Address Organization Details Last Updated DateTime 03/03/2025 153.67 cm 22.7 kg/m2 83313.9 g 120/62 mm[Hg] Bernice Adams(TERM ) [facility] 03/03/2025 10:18:01 Social History Question Answer Notes LastModified by Organizat ion Details LastModified Time Tobacco Smoking Status Never Smoker Anastacia Bush [facility] 12/02/2024 10:43:17 Do You Have An Advance Directive? Yes [email or web address] Information not available 03/03/2025 What Is Your Level Of Caffeine Consumption? Moderate [email or web address] Information not available 12/02/2024 What Type Of Diet Are You Following? REGULAR [email or web address] Information not available 12/02/2024 What Is Your Relationship Status? [email or web address] Information not available 12/02/2024 Sex: Unknown Functional Status Question Answer Note LastModified by Organizat ion Details LastModified Time How many times per week do you consume alcohol? 1-2 times per week [email or web address] Information not available 12/02/2024 Do you use any illicit or recreational drugs? No Information not available 12/02/2024 What is your level of alcohol consumption? Occasional [email or web address] Information not available 12/02/2024 Are you currently employed? 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 Family History Relationship Description Onset Age of this Age Resolved Age Notes LastModified by Organization Details LastModified Time Maternal Grandfather Depressive disorder [email or web address] Not available 2024 11:01:01 Maternal Grandfather Anxiety disorder [email or web address] Not available 2024 11:34:04 Mother Depressive disorder [email or web address] Not available 2024 11:01:02 Mother Anxiety disorder [email or web address] Not available 2024 11:34:04 Paternal Grandmother Diabetes mellitus [email or web address] Not available 2024 11:34:04 Father Hypercholest erolemia Not available 2024 11:34:04 Father Hypertensive disorder [email or web address] Not available 2024 11:02:13 Father Mixed hypercholest erolemia and hypertriglyc eridemia Elevat ed Choles terol/ Trigly ceride s [email or web address] Not available 03/03/2025 09:59:53 Maternal Aunt Family history of breast cancer [email or web address] Not available 2024 09:59:53 Unspecified Relation Family history of breast cancer Family histor y of breast cancer matern al- progre ssed w mirena in place Relati ve: 'Aunt' ; [email or web address] Not available 03/03/2025 09:59:53 Medical History Condition Response Psych- Depression Y Cancer- Genetic screening GI- Irritable Bowel Syndrome Y Dermatology-Other Y Psych- Anxiety Disorder Y Gynecological History Statement/Question Response History of Fibroids N Flow Heavy Date of Last Mammogram 10/14/2022 Date of LMP 09/23/2023 Current Control Method: Vasectomy - Partner Cologuard Testing N History of Recurrent Ovarian Cysts N Age at first intercourse 19 HPV Vaccine Completed Post Menopausal Hormone Therapy User Nev er Date of Last Colonoscopy 10/14/2020 Date of Last HPV Test 10/25/2022 Date of Last Cholesterol Screening 11/08 History of PCOS N History of Infertility N History of Cervical Dysplasia N History of Vulvar Dysplasia N Duration of Flow (days) 0 History of HPV N Current Control Method Partner Vas ectomy Age at Menarche 14 History of Endometriosis N Frequency of Cycle (Q days) 0 Sexually Active? Y History of Abnormal PAP N History of Dysmenorrhea N Menses Monthly N Date of Last Pap Smear 10/25/2022 Sexual Problems? N History of Sexually Transmitted Infectio n N Obstetrics History GPAL:G 2 P 2 0 0 2 Type Value Full Term 2 Living 2 Total 2 Past Encounters Encounter ID Performer Location Encounter Start Date Encounter Closed Date Diagnosis/Indication Diagnosis SNOMED-CT Code Diagnosis ICD10 Code Diagnosis IMO Codes Diagnosis Note [id number] LOUISA CRUZ [id number] [facility] [address] [place] [address] [place] [address] 12/02/2024 11:24:01 12/02/2024 11:52:06 Gynecologic examination 42191419 Z01.[id number], MD [id number] [facility] [address] [place] [address] [place] [address] 03/03/2025 09:59:52 03/03/2025 10:52:25 Dysuria 56018021 R30.0 85441 03/03/25-wi send urine for c&s-drinks 1 caffeinate d beverage daily-othe rwise, rare use of bladder stimulants -drinks mostly ice water-try [place]-I will send order for UA reflex C&S to [facility] for her to do if UTI sx prior to seeing urology-ta ke phenazopyr idine if needed only Candidal vulvovaginitis 90561354 B37.31 99890 03/03/25-to ok fluconazol e x 1 two days ago-take 2nd dose of fluconazol e tomorrow, may take a 3rd dose 72 hours after-use monistat 7 day to vulva Health Concerns Section Related Observation LastModified by Organization Omar wilson LastModified Time None Recorded Concern Status LastModified by Organization Details LastModified Time None Recorded Advance Directives Directive Y: Payers Insurance Date Sequence Insurance Name Policy Number Policy Hendrickson Covered Member ID Hendrickson Member ID Guarantor Name 03/10/2025 1 [facility] [id number] Jones Duggan [id number] Joyce Duggan Notes Date Note Type Note Provider Name and Address Organization Details Recorded Time 5 text/html [facility] Annual Well-Women Visit Age 30-39Reported by PatientPreventive Health ScreeningsFor relevant family history, patient reportshas a family history of breast cancer (maternal aunt-dx in 30s. no other family hx). For current medical history, patient reportsreviewed and documented. For last pap smear, patient reportslast hpv [id number]. For mammography, patient reportsn/a.ContraceptionFor contraceptive method, patient reportssatisfied with current methodandcontraceptive method: partner vasectomy.Sexually ActiveFor sexually active, patient reportsyes: spouse.STI ScreenFor sti screen, patient reportsdeclines sti testing.Menstrual History/SymptomsFor menstrual cycle, patient reportsamenorrhea s/p endometrial ablation. LOUISA CRUZ [address], [place], [address], [facility] 12/02/2024 13:58:30 5 text/html 03/03/25 presents with c/o hx of recurrent UTIs-was on daily abx x 10 years. was taken off a few years ago-states she was then sent to a vulvar specialist. was told she likely has either had BV or IC instead of chronic UTIs. [facility] PCP also mentioned that she could have IC. pt has not seen urology since she was very young. has been using boric acid suppositories after intercourse with no sx until Nov. denies any changes in her routine but has been seen 4x for UTI since then, states the cx on at least 2 of the samples had no growth. took augmentin last week for UTI but was called and told to stop it because the culture was negative. now having vulvar itching, irritation, swelling, pain when urine touches her skin. denies vaginal sx. denies discharge. declines std testing. -[facility] LOUISA CRUZ [address], [place], [address], [facility] 03/03/2025 11:08:33 OBGyn Episode Ob Episode Information Episode Created Date Number of Fetuses Patient Bloodtype Patient rh Status Prepregnancy Weight lbs Domestic Partner Domestic Partner Phone Father Name Cut Off Machine Operator Status 12/02/19 25 1 CLOSED Fetus Data First Name Last Name Admitted to NICU Weight (g) Sex Living Outcome Pediatric Complications Fetus ID Race Codes Race Delivery Type 2834.95 M Full Term [id number] Vaginal Emile Calculation Initial Emile Date Initial Exam Date Initial Exam Provider Initial Ultrasound Date Last Menstrual Period Date Ultra Sound Weeks Gestation 0 Eighteen To Twenty Week Emile Update Ultra Sound Date Fundal Height At Umbil Quickening Date Ultra Sound Latest Weeks Gestation Final Emile Confirmed By Final Emile Confirmed Date Final Emile Date Ultra Sound Latest Days Gestation 0 0 Menstrual History Last Menstrual Date Menses Monthly On Bcp Conception Prior Menses Frequency Hcg Plus Date Menarche Onset Age Delivery Information Delivery Date Delivery Type Labor Anesthesia Weeks Gestation Incision Type Labor Labor Length Hrs Delivered By Post Complications Tubal Sterilization Discharge Date Comments 1 39 Discharge Information Feeding Method Contraceptive Method Maternal HG B and HCT Levels Ob Episode Information Episode Created Date Number of Fetuses Patient Bloodtype Patient rh Status Prepregnancy Weight lbs Domestic Partner Domestic Partner Phone Father Name Cut Off Machine Operator Status 12/02/19 25 1 CLOSED Fetus Data First Name Last Name Admitted to NICU Weight (g) Sex Living Outcome Pediatric Complications Fetus ID Race Codes Race Delivery Type 3373.36 [id number] F Full Term [id number] Vaginal Emile Calculation Initial Emile Date Initial Exam Date Initial Exam Provider Initial Ultrasound Date Last Menstrual Period Date Ultra Sound Weeks Gestation 0 Eighteen To Twenty Week Emile Update Ultra Sound Date Fundal Height At Umbil Quickening Date Ultra Sound Latest Weeks Gestation Final Emile Confirmed By Final Emile Confirmed Date Final Emile Date Ultra Sound Latest Days Gestation 0 0 Menstrual History Last Menstrual Date Menses Monthly On Bcp Conception Prior Menses Frequency Hcg Plus Date Menarche Onset Age Delivery Information Delivery Date Delivery Type Labor Anesthesia Weeks Gestation Incision Type Labor Labor Length Hrs Delivered By Post Complications Tubal Sterilization Discharge Date Comments 4 Regional-Ep idural Discharge Information Feeding Method Contraceptive Method Maternal HG B and HCT Levels
--- OUTSIDE RECORDS SUMMARY | 2025-10-02 08:16 | XMS_ITS | Encounter Summary ---
Author Organization [facility] Address [address] [place] [address] Care Team Providers Care Replacer Name Role Phone Lucio Peters MD Primary Care Provider [phone]- [phone] Encounter Details Date Type Department Care Team (Late st Contact Info) Description 12/26/2021 [employer] Message Enc [facility] Medical Group Family & Internal Medicine [facility] [address] [place] [address] [place] [address] [place] [address] Prescription Social History Tobacco Use Types Packs/Day Years [...] Master's degree (e.g., MA, MS, Cabrera, MEd, COMPLAINT EVALUATION OFFICER, [place]) 12/10/2018 Comments No Sex and Gender Information Value Date Recorded Sex Assigned at Female 02/25/2025 2:01 PM CDT Legal Sex Female 8:55 PM CDT Gender Identity Female 12/20/2021 11:36 AM CONCRETE POLISHER Sexual Orientation Straight 12/20/2021 11 :36 AM CONCRETE POLISHER Occupation Industry Job Start Date Job End Date Not on file Not on file Not on file Not on file COVID-19 Exposure Response Date Recorded In the last 10 days, have yo u been in contact with someone who was confirmed or suspected to have Coronavirus/COVID-19? No / Unsure 12/20/2021 9:29 PM CONCRETE POLISHER documented as of this encounter Plan of Treatment Not on file documented as of this encounter Visit Diagnoses Not on filedocumented in this encounter Additional Health Concerns Assessment Noted Time PHQ-9 Depression Total Score: 0 12/22/19 10:49 AM CONCRETE POLISHER documented as of this encounter Care Teams Replacer Relationship Specialty [place] [address] [place] [address] PCP - General FAMILY PRACTICE 12/10/18 documented as of this encounter
--- OUTSIDE RECORDS SUMMARY | 2025-10-02 08:16 | XMS_ITS | Encounter Summary ---
Author Organization [facility] Address [address] [place] [address] Care Team Providers Care Sole Leveler Machine Name Role Phone Lucio Peters MD Primary Care Provider [phone]- [phone] Encounter Details Date Type Department Care Team (Late st Contact Info) Description 06/28/2022 [employer] Message Enc [facility] Medical [facility] Family & Internal Medicine [facility] [address] [place] [address] [place] [address] [place] [address] Health form for Insurance Social History Tobacco Use Types Packs/Day Years [...] Master's degree (e.g., MA, MS, Cabrera, MEd, MACHINIST SUPERVISOR OUTSIDE, [place]) 12/10/2018 Comments No Sex and Gender Information Value Date Recorded Sex Assigned at Female 02/25/2025 2:01 PM CDT Legal Sex Female 8:55 PM CDT Gender Identity Female 12/20/2021 11:36 AM TRACK OILER Sexual Orientation Straight 12/20/2021 11 :36 AM TRACK OILER Occupation Industry Job Start Date Job End [...] Total Score: 0 12/22/19 22 10:49 AM TRACK OILER documented as of this encounter Care Teams Sole Leveler Machine Relationship Specialty [place] [address] [place] [address] PCP - General FAMILY PRACTICE 12/10/18 documented as of this encounter
--- OUTSIDE RECORDS SUMMARY | 2025-10-02 08:16 | XMS_ITS | Encounter Summary ---
Author Organization [facility] Address [address] [place] [address] Care Team Providers Care Boiler Room Helper Name Role Phone Lucio Peters MD Primary Care Provider [phone]- [phone] Encounter Details Date Type Department Care Team (Late st Contact Info) Description 08/20/2025 [employer] Message Enc [facility] Medical Group Family & Internal Medicine [facility] [address] [place] [address] [place] [address] [place] [address] Migraine Social History Tobacco Use Types Packs/Day Years [...] Master's degree (e.g., MA, MS, Cabrera, MEd, MANAGER OF MANUFACTURING, [place]) 12/10/2018 Comments No Sex and Gender Information Value Date Recorded Sex Assigned at Female 02/25/2025 2:01 PM CDT Legal Sex Female 8:55 PM CDT Gender Identity Female 12/20/2021 11:36 AM COMMUNITY ADVOCATE Sexual Orientation Straight 12/20/2021 11 :36 AM COMMUNITY ADVOCATE Occupation Industry Job Start Date Job End [...] documented as of this encounter Care Teams Boiler Room Helper Relationship Specialty [place] [address] [place] [address] PCP - General FAMILY PRACTICE 12/10/18 documented as of this encounter
--- OUTSIDE RECORDS SUMMARY | 2025-10-02 08:16 | XMS_ITS | Encounter Summary ---
Author Organization [facility] Address [address] [place] [address] Care Team Providers Care Finisher Tailor Apprentice Name Role Phone Unavailable Primary Care Provider Unavailabl e Encounter Details Date Type Department Care Team (Late st Contact Info) Description 07/12/2021 Lab Requisition [facility] DermPath Lab [address] [facility] [place] [address] Moisés Miramontes MD [address] [facility] [place] [address] Social History Tobacco Use Types Packs/Day Years Used Date Smoking Tobacco: Never Assessed Comments Unknown Sex and Gender Information Value Date Recorded Sex Assigned at Not on file Legal Sex Female 9:30 AM CDT Gender Identity Not on file Sexual Orientation Not on file documented as of this encounter Plan of Treatment Not on file documented as of this encounter Procedures Procedure Name Priority Date/Time Associated Diagnosis Comments DERMATOPATHOLOGY Routine 07/11/2021 12:0 0 AM CDT documented in this encounter Results * DERMATOPATHOLOGY (07/11/2021 12:00 AM CDT) Case Report Dermatopathology Report Case: [id number] Authorizing Provider: Moisés Miramontes MD Collected: 07/11/2021 12:00 AM Ordering Location: [facility] Derm[facility] Lab Received: 07/12/2021 06:08 AM Pathologist: Karli Oswald MD Specimen: Skin, right thumbnail 1:41 PM CDT DERMATOPATHOLOGY LABORATORY Final Diagnosis Specimen A. SKIN, right thumbnail: COMPACT KERATIN CONSISTENT WITH NAIL PLATE (L60.8) 1:41 PM CDT DERMATOPATHOLOGY LABORATORY at 1341 CDT Clinical History R/O onychomycosis. Path# [id number] 1:41 PM CDT DERMATOPATHOLOGY LABORATORY Gross Description Specimen A: Received is one formalin filled container labeled with the patient's name and designated right thumbnail. The specimen consists of a nail clipping measuring [id number] and [id number]. 1:41 PM CDT DERMATOPATHOLOGY LABORATORY Microscopic Description Specimen A. SKIN, right thumbnail: Sections show nail plate. Periodic acid-Aryan (PAS) stained sections do not highlight fungal organisms. 1:41 PM CDT DERMATOPATHOLOGY LABORATORY Disclaimer An external and internal positive and negative controls are appropriate for the histochemical, immunohistochemical and immunofluorescence stain(s) in this case (if any), except where stated explicitly. The performance characteristics of the stain(s) cited in this report were developed and its performance characteristic determined by the Dermatopathology Laboratory at [facility], directed by Dr. Raj Gómez. These tests need not be, and therefore are not, approved by the [place] Food and Drug Administration. The tests are used for clinical purposes. Billing Codes Specimen Charges Stain Charges 75168 1 [id number] 1 1:41 PM CDT DERMATOPATHOLOGY LABORATORY Embedded Images 1:41 PM CDT DERMATOPATHOLOGY LABORATORY Pathology/Cytolog y TISSUE SPECIMEN FROM SKIN / Unknown 07/11/2021 07/12/2021 6:08 AM CDT us Moisés Miramontes MD LAB - PATHOLOGY/CYTOLOGY ORDER NICO Final Result DERMATOPATHOLOGY LABORATORY [facility] - Department of Dermatology [address], [address] [phone] documented in this encounter Visit Diagnoses Not on filedocumented in this encounter
[2025-10-02 08:19] VITALS: BP 96/55; PULSE 99; RESP 16; TEMP 36.3; O2SAT 100
--- NOTE | 2025-10-02 08:28 | ED.URI ---
HPI - URI/Sore Throat General Chief Complaint: Upper Respiratory Infection Stated Complaint: URI/throat Time Seen by Provider: 10/02/25 08:28 Source: patient, RN notes reviewed and old records reviewed Mode of arrival: ambulatory Limitations: no limitations History of Present Illness HPI Narrative: 40-year-old female presents to the [facility] with congestion, sinus pain, pressure, ear pain and sore throat. Symptoms are worse on the left side than the right. Has taken Sudafed and Tylenol. Reports 1 week ago she took a COVID test which she reports as negative. Onset (ago): day(s) () Related Data Home Medications ?Medication ?Instructions ?Recorded ?Confirmed ?Last Taken ?Type alprazolam 0.25 mg tablet 0.25 mg PO HS PRN anxiety 02/19/25 08/16/25 Unknown History bupropion HCl 300 mg 24 hr tablet, 300 mg PO DAILY 02/19/25 08/16/25 Unknown History extended release plecanatide 3 mg tablet (Trulance) 3 mg PO DAILY 02/19/25 08/16/25 Unknown History risankizumab-rzaa 150 mg/mL 150 mg subcut .3 months 02/19/25 08/16/25 Unknown History subcutaneous pen injector (Skyrizi) tirzepatide (weight loss) 5 mg/0.5 5 mg subcut WEEKLY 02/19/25 08/16/25 Unknown History mL subcutaneous pen injector (Zepbound) Allergies Allergy/AdvReac Type Severity Reaction Status Date / Time latex Allergy Intermediate Rash Verified 10/02/25 08:18 Review of Systems Review of Systems: All systems reviewed & are unremarkable except as noted in HPI and below Constitutional: Constitutional: Reports no additional constitutional complaints ENT: Reports as per HPI, Reports otalgia, Reports nasal congestion and Reports sore throat Cardiovascular: Cardiovascular: Reports no additional cardiovascular complaints, Denies chest pain and Denies dyspnea Respiratory: Respiratory: Reports no additional respiratory complaints, Denies chest congestion, Denies cough and Denies dyspnea Musculoskeletal: Musculoskeletal: Reports no additional musculoskeletal complaints Integumentary/Breasts: Skin/Breast: Reports system reviewed and no additional complaints, except as docu PMFSH Past Medical History Medical History Psoriasis IBS (irritable bowel syndrome) Anxiety and depression Urinary tract infection Surgical History Surgical History History of endometrial ablation Social History Social History Smoking status: Never smoker Alcohol intake: current Alcohol use details: social Substance use type: does not use Living arrangements: with family Gender identity (if verbalized by the patient): Female Comments At the time of my signature, I reviewed and agree with the nursing past medical, surgical, social, and family history. There is no relevant family history pertinent to the patient complaint. Exam Const: General: cooperative, no acute distress, well developed, alert, tired appearing, uncomfortable and well nourished Nutritional Appearance: well nourished Orientation/consciousness: patient oriented x3 Limitations: no limitations HENMT: Head: normal to inspection Ears: hearing grossly normal bilaterally, external ears normal, TM's normal bilaterally, EAC's normal, mastoids normal and no periauricular adenopathy Face/Nose/Sinus: Abnormal mucous membranes and turbinates present erythematous, Nasal discharge present clear, face symmetric, No ecchymosis, No erythema and sinus tenderness Mouth: Yes Normal oral and palatal mucosa present, Yes lip normal, Yes tongue normal and Yes moist mucous membranes Throat: posterior oropharynx normal, uvula midline, postnasal drainage and no uvular edema Eyes: General: appearance normal, both eyes and all related structures Alignment and Position: alignment normal Neck: Neck: normal visual inspection, full ROM, no lymphadenopathy and no meningeal signs Chest: Chest palpation & inspection: normal inspection of the chest Resp: Effort & Inspection: normal respiratory effort and able to speak in complete sentences Auscultation: clear to auscultation bilaterally, no crackles, no rales, no rhonchi and no wheezes Cardio: Rate: regular rate Skin: General skin exam: normal color and no rashes or lesions noted Neuro: General: patient oriented x3, gait normal, moves all extremities and no meningeal signs Cognition (Neuro): normal cognition Speech: normal speech Gait exam (Neuro): Normal gait present Extrem: General: normal to inspection, full ROM, capillary refill normal and normal gait Psych: Appearance: grossly normal and well kempt Mental Status: mental status grossly normal Speech and movement: Normal speech and movement present and Clear speech present Affect: normal affect Attitude: cooperative Course Course Level of Care: Express Care Visit Vital Signs Vital signs: Vital Signs Temperature 97.3 F L 10/02/25 08:19 Pulse Rate 99 10/02/25 08:19 Respiratory Rate 16 10/02/25 08:19 Blood Pressure 96/55 L 10/02/25 08:19 Pulse Oximetry 100 10/02/25 08:19 Oxygen Delivery Room Air 10/02/25 08:19 Temperature 97.3 F L 10/02/25 08:19 Pulse Rate 99 10/02/25 08:19 Respiratory Rate 16 10/02/25 08:19 Blood Pressure 96/55 L 10/02/25 08:19 Pulse Oximetry 100 10/02/25 08:19 Oxygen Delivery Room Air 10/02/25 08:19 reviewed MDM MDM Narrative Medical decision making narrative: Patient sitting in exam room. Patient is nontoxic, vitals are stable. Patient presents with 15 day history of sinus symptoms, URI symptoms. Due to length of symptoms will cover with an antibiotic, discussed the importance of continuing [id number] products which patient verbalized understanding. Patient is appropriate for outpatient treatment with close follow-up Discharge instructions reviewed with patient, as well as provided in writing per nursing staff. The instructions also include specific and strict return/GO TO THE ER as well as f/u information. All questions have been answered, and the patient deny any further questions with discharge and discharge plan. Some parts of this dictation were generated by voice recognition software and may contain typographical and/or grammatical inaccuracies. Differential Diagnosis Differential Diagnosis: Differential diagnostic considerations for upper respiratory infection include upper respiratory infection, croup, otitis media, sinusitis, viral infection, bronchitis, influenza, pharyngitis, strep, uvulitis.? Lab Data Labs: Lab Results 10/02/25 Range/Units 08:36 POC Grp A Strep Screen Negative (Negative) reviewed Discharge Plan Discharge Clinical Impression: Sinusitis Qualifiers: Sinusitis location: pansinusitis Chronicity: acute Recurrence: not specified as recurrent Qualified Code(s): J01.40 - Acute pansinusitis, unspecified Patient Disposition: Home Condition: Stable Instructions: Antibiotic Form, Sinusitis (ED) Additional Instructions: It is very important to treat your symptoms. Drink plenty of water, Gatorade, Pedialyte, ice pops or Jell-O. -Alternate Tylenol and Motrin per package directions for fever or pain. You can alternate every 4 hours -Antihistamine medication such as Zyrtec/Claritin during the day can help improve symptoms. -doing daily nasal irrigations can help relieve pressure your sinuses. Things like a Neti pot -Use Flonase twice a day for 5 days then daily to help reduce the inflammation and dry up your sinuses. -You can also use Mucinex. Be sure to drink plenty of water with this medication at least 8 ounces with every dose and it is important to drink 8 to 10 glasses of water per day. Water is a natural decongestant -Eat and drink things that are easy to swallow, like tea or soup, or popsicles. -Oral rinses such as: Salt water gargles and/or may use topical anesthetic (eg. Chloraseptic spray) or lozenges to relieve dryness or throat pain). -Frequent hand washing or hand stripping shovel operator is one of the best ways to prevent spread of infection. -Using a vaporizer or humidifier at night will also help thin secretions and help with coughing up phlegm. -Follow up with primary care provider in 7-10 days if condition is not improving - For new or worsening symptoms go directly to the nearest ER Patient Language: Hebrew Prescriptions: New doxycycline monohydrate 100 mg tablet 100 mg PO BID Qty: 14 0RF No Action alprazolam 0.25 mg tablet 0.25 mg PO HS PRN (Reason: anxiety) bupropion HCl 300 mg tablet extended release 24 hr 300 mg PO DAILY Skyrizi 150 mg/mL pen injector 150 mg SUBCUT .3 months Zepbound 5 mg/0.5 mL pen injector 5 mg SUBCUT WEEKLY Trulance 3 mg tablet 3 mg PO DAILY Follow-up/Referrals: Fran,Lucio Zaidi MD [Primary Care Provider] - 2 Weeks Clinical Impression: Sinusitis Stand Alone Forms: Work/School Release IP Time of Disposition: 08:39
[2025-10-02 08:39] LABS: EDSTREPNEGPOS1 Negative (Negative)
== END 2025-10-02 08:42 | disposition home or self-care (01) ==
PROVIDERS: Emergency Provider Nurse Practitioner; PCP Family Medicine
DX: J01.40 Acute pansinusitis, unspecified (principal); L40.9 Psoriasis, unspecified; F41.9 Anxiety disorder, unspecified; F32.A Depression, unspecified
CPT/HCPCS: 87880; 99213; G0463